=== PATIENT | female | born 2000 | race Caucasian/White ===

== ENCOUNTER 2020-04-20 09:50 | Observation (INO) ==
[2020-04-20 11:32] LABS: Bilirubin,Urine Negative (Negative); Blood,Urine Negative (Negative); Clarity,Urine Clear (Clear); Color,Urine Light-Yellow (Yellow); Glucose,Urine (UA) Normal (Normal); Ketones,Urine Negative (Negative); Leukocyte Esterase,Urine Negative (Negative); Nitrite,Urine Negative (Negative); PH,Urine 7.5 pH Units (5.0-8.0); Protein,Urine Negative (Neg-Trace); Specific Gravity,Urine 1.009 (1.010-1.025); Urobilinogen,Urine Normal (Normal)
== END 2020-04-20 11:50 | disposition home or self-care (01) ==
LOC: 1NENULAB
PROVIDERS: ADMIT Obstetrics & Gynecology; ATTEND Obstetrics & Gynecology

== ENCOUNTER 2020-06-02 04:02 | Inpatient (IN) ==
[2020-06-02] MEDS ORDERED: Lidocaine 1% 20 ML MDV INFILT PRN (04:25)
[2020-06-02] MEDS ORDERED: *HR* FentaNYL (PF) 100 MCG/2 ML VIAL IVP PRN (04:25)
[2020-06-02] MEDS ORDERED: miSOPROStoL 25 MCG TABLET PO PRN (04:25)
[2020-06-02] MEDS ORDERED: Metoclopramide 10 MG/2 ML VIAL IVP PRN ×2 (04:25→15:23)
[2020-06-02] MEDS ORDERED: Azithromycin 500 MG in 0.9 % Sodium Chloride 250 ML IVPB ONE (04:25)
[2020-06-02] MEDS ORDERED: Ondansetron 4 MG/2 ML VIAL IVP PRN ×3 (04:25→15:23)
[2020-06-02] MEDS ORDERED: Famotidine 20 MG/2 ML VIAL IVP PRN (04:25)
[2020-06-02] MEDS ORDERED: Naloxone 0.4 MG/ML INJ IVP PRN (04:25)
[2020-06-02] MEDS ORDERED: Ringers Solution, Lactated 1,000 ML IVC SCH (04:30)
[2020-06-02 04:40] LABS: Basophils % 0.2 %; Eosinophils # 0.1 K/mcL (0.0-0.6); Hematocrit 36.9 % (35.3-44.9); Hemoglobin 12.1 g/dL (11.5-15.4); Immature Granulocytes % 0.3 % (0-4); Lymphocytes # 2.6 K/mcL (0.6-4.6); Lymphocytes % 27.7 %; Mean Corpuscular HGB Conc 32.8 g/dL (31.6-35.5); Mean Corpuscular Hemoglobin 29.7 pg (28.0-33.3); Mean Corpuscular Volume 90.4 fL (83.0-100.0); Mean Platelet Volume 12.5 fL (9.4-12.4); Monocytes # 0.6 K/mcL (0.0-1.3); Monocytes % 6.7 %; Neutrophils # 6.1 K/mcL (1.6-8.9); Platelet Count 168 K/mcL (140-400); Red Blood Count 4.08 M/mcL (3.82-4.97); Red Cell Distribution Width 13.2 % (11.5-14.5); Segmented Neutrophils % 64.1 %; White Blood Count 9.5 K/mcL (4.3-11.1)
[2020-06-02 04:50] LABS: Amphetamine Screen,Urine Negative ng/mL (Cutoff=1000); Barbiturate Screen,Urine Negative ng/mL (Cutoff=200); Benzodiazepines Screen,Urine Negative ng/mL (Cutoff=200); Cannabinoid Screen,Urine Negative ng/mL (Cutoff = 50); Cocaine Screen,Urine Negative ng/mL (Cutoff= 300); Opiate Screen,Urine Negative ng/mL (Cutoff=300); Phencyclidine Screen,Urine Negative ng/mL (Cutoff=25)
[2020-06-02] MEDS ORDERED: Ropivacaine/PF 0.2% 20 ML VIAL EP ONE (08:19)
[2020-06-02] MEDS ORDERED: *HR* FentaNYL (PF) 100 MCG/2 ML VIAL EP ONE (08:19)
[2020-06-02] MEDS ORDERED: EPHEDrine 50 MG/ML VIAL IVP PRN (08:19)
[2020-06-02] MEDS ORDERED: Ropivacaine/PF 0.2% 20 ML VIAL ONE (08:22)
[2020-06-02] MEDS ORDERED: *HR* FentaNYL (PF) 100 MCG/2 ML VIAL ONE ×2 (08:22→11:45)
[2020-06-02] MEDS ORDERED: Oxytocin 20 units/ LR 1000 mL 20 UNIT/1,000 ML BAG IVC SCH (08:30)
[2020-06-02] MEDS ORDERED: Epidural Premix (fent/bupiv) 110 ML EP SCH (08:30)
[2020-06-02] MEDS ORDERED: Chloroprocaine/PF 20 ML VIAL INFILT ONE ×2 (11:30→12:00)
[2020-06-02] MEDS ORDERED: *HR* Oxytocin 10 UNIT/ML VIAL IM ONE ×2 (11:41→12:08)
[2020-06-02] MEDS ORDERED: *HR* Morphine Sulfate/PF 10 MG/10 ML AMPUL ONE (11:45)
[2020-06-02] MEDS ORDERED: *HR* HYDROmorphone PF 0.5 MG/0.5 ML SYRINGE IVP PRN (12:05)
[2020-06-02] MEDS ORDERED: Acetaminophen IV 1,000 MG/100 ML INFUS..BTL IVPB ONE (12:05)
[2020-06-02] MEDS ORDERED: Ringers Solution, Lactated 1,000 ML ONE (12:08)
[2020-06-02] MEDS ORDERED: *HR* Phenylephrine 10 MG/ML VIAL ONE (12:11)
[2020-06-02] MEDS ORDERED: *HR* HYDROMORPHONE 2 MG/ML VIAL ONE (12:40)
[2020-06-02] MEDS ORDERED: Sennosides 8.6 MG TABLET PO PRN (15:23)
[2020-06-02] MEDS ORDERED: Rho Immune Globulin 1,500 UNIT SYRINGE IM ONE (15:23)
[2020-06-02] MEDS: Oxytocin 20 units/ LR 1000 mL 20 UNIT/1,000 ML BAG IVC SCH (17:25)
[2020-06-02] MEDS: cephALEXin 500 MG CAPSULE PO SCH (20:23)
[2020-06-02] MEDS: Ibuprofen 600 MG TABLET PO PRN (20:23)
[2020-06-02] MEDS: metroNIDAZOLE 500 MG TABLET PO SCH (20:23)
[2020-06-03] MEDS: Oxytocin 20 units/ LR 1000 mL 20 UNIT/1,000 ML BAG IVC SCH (01:38)
[2020-06-03] MEDS: Ibuprofen 600 MG TABLET PO PRN ×2 (04:04→20:21)
[2020-06-03 05:21] LABS: Basophils % 0.2 %; Eosinophils # 0.1 K/mcL (0.0-0.6); Eosinophils % 0.5 %; Hematocrit 25.9 % (35.3-44.9); Immature Granulocytes % 0.5 % (0-4); Lymphocytes # 1.2 K/mcL (0.6-4.6); Lymphocytes % 11.2 %; Mean Corpuscular HGB Conc 32.8 g/dL (31.6-35.5); Mean Corpuscular Hemoglobin 29.9 pg (28.0-33.3); Mean Corpuscular Volume 91.2 fL (83.0-100.0); Mean Platelet Volume 12.6 fL (9.4-12.4); Monocytes # 1.1 K/mcL (0.0-1.3); Monocytes % 10.3 %; Neutrophils # 8.6 K/mcL (1.6-8.9); Platelet Count 141 K/mcL (140-400); Red Blood Count 2.84 M/mcL (3.82-4.97); Red Cell Distribution Width 13.4 % (11.5-14.5); Segmented Neutrophils % 77.3 %; White Blood Count 11.1 K/mcL (4.3-11.1)
[2020-06-03 05:33] LABS: Hemoglobin 8.5 g/dL (11.5-15.4)
[2020-06-03] MEDS: metroNIDAZOLE 500 MG TABLET PO SCH ×3 (08:36→20:22)
[2020-06-03] MEDS: Prenatal Vit/FA 1 EACH TABLET PO SCH (08:36)
[2020-06-03] MEDS: cephALEXin 500 MG CAPSULE PO SCH ×3 (08:37→20:21)
[2020-06-03] MEDS: *HR* OxyCODONE/APAP 5/325 TABLET PO PRN (16:20)
[2020-06-03] MEDS: Simethicone 80 MG TAB.CHEW PO PRN (22:12)
[2020-06-04] MEDS: Simethicone 80 MG TAB.CHEW PO PRN (06:45)
[2020-06-04] MEDS: *HR* OxyCODONE/APAP 5/325 TABLET PO PRN (06:48)
[2020-06-04 08:10] VITALS: BP 104/56
[2020-06-04] MEDS: cephALEXin 500 MG CAPSULE PO SCH (08:10)
[2020-06-04] MEDS: Prenatal Vit/FA 1 EACH TABLET PO SCH (08:10)
[2020-06-04] MEDS: metroNIDAZOLE 500 MG TABLET PO SCH (08:10)
== END 2020-06-04 11:45 | disposition home or self-care (01) | DRG 540 ==
LOC: 1NENULAB 04:02 → UNDODISIN 05:05 → 1NENUOBS 15:13
PROVIDERS: ADMIT Student in an Organized Health Care Education/Training Program; ATTEND Student in an Organized Health Care Education/Training Program

== ENCOUNTER → 2021-10-04 16:00 | Observation (INO) ==
[2021-10-04 12:56] LABS: Bilirubin,Urine Negative (Negative); Blood,Urine Negative (Negative); Clarity,Urine Clear (Clear); Color,Urine Yellow (Yellow); Glucose,Urine (UA) Normal (Normal); Ketones,Urine Negative (Negative); Leukocyte Esterase,Urine Negative (Negative); Nitrite,Urine Negative (Negative); PH,Urine 6.5 pH Units (5.0-8.0); Protein,Urine Trace mg/dL (Neg-Trace); Specific Gravity,Urine 1.025 (1.010-1.025); Urobilinogen,Urine Normal (Normal)
[2021-10-04 14:54] LABS: Basophils % 0.1 %; Eosinophils # 0.2 K/mcL (0.0-0.6); Eosinophils % 1.4 %; Hematocrit 33.9 % (35.3-44.9); Hemoglobin 11.7 g/dL (11.5-15.4); Immature Granulocytes % 0.5 % (0-4); Lymphocytes # 2.5 K/mcL (0.6-4.6); Lymphocytes % 23.7 %; Mean Corpuscular HGB Conc 34.5 g/dL (31.6-35.5); Mean Corpuscular Hemoglobin 30.3 pg (28.0-33.3); Mean Corpuscular Volume 87.8 fL (83.0-100.0); Mean Platelet Volume 11.9 fL (9.4-12.4); Monocytes # 0.6 K/mcL (0.0-1.3); Monocytes % 5.3 %; Neutrophils # 7.4 K/mcL (1.6-8.9); Platelet Count 218 K/mcL (140-400); Red Blood Count 3.86 M/mcL (3.82-4.97); Red Cell Distribution Width 12.8 % (11.5-14.5); White Blood Count 10.7 K/mcL (4.3-11.1)
[2021-10-04 15:12] LABS: Alanine Aminotransferase 8 Units/L (7-52); Albumin 3.7 g/dL (3.5-5.7); Albumin/Globulin Ratio 1.2 (1.1-2.2); Alkaline Phosphatase 110 Units/L (34-104); Aspartate Amino Transferase 11 Units/L (13-39); BUN/Creatinine Ratio 23 (6-26); Bilirubin,Total 0.3 mg/dL (0.3-1.0); Blood Urea Nitrogen 11 mg/dL (6-20); Calcium 8.9 mg/dL (8.6-10.3); Carbon Dioxide 22 mEq/L (23-29); Chloride 106 mEq/L (98-107); Globulin 3.1 g/dL (2.4-3.5); Glucose 66 mg/dL (70-105); Osmolality,Calculated 280 (280-300); Potassium 3.8 mEq/L (3.5-5.1); Sodium 136 mEq/L (136-145); Total Protein 6.8 g/dL (6.4-8.9); eGFR For African Americans > 60 (> 60); eGFR For Non-African Americans > 60 (> 60)
[~2021-10-04 16:00] MED LIST: Ringers Solution, Lactated 1,000 ML IVC ONE
== END | disposition home or self-care (01) ==
LOC: 1NENULAB
PROVIDERS: ADMIT Obstetrics & Gynecology; ATTEND Obstetrics & Gynecology

== ENCOUNTER → 2021-11-09 23:30 | Observation (INO) ==
[2021-11-09 21:40] LABS: Bacteria,Urine Few per hpf (None-Few); Bilirubin,Urine Negative (Negative); Blood,Urine Negative (Negative); Clarity,Urine Clear (Clear); Color,Urine Yellow (Yellow); Glucose,Urine (UA) Normal (Normal); Ketones,Urine Negative (Negative); Leukocyte Esterase,Urine Small (Negative); Mucus,Urine Few per lpf (None-Few); Nitrite,Urine Negative (Negative); PH,Urine 6.5 pH Units (5.0-8.0); Protein,Urine 50 mg/dL (Neg-Trace); Specific Gravity,Urine > 1.030 (1.010-1.025); Squamous Epithelial Cell,Urine Moderate per hpf (None-Few)
[~2021-11-09 23:30] MED LIST changes: +Ondansetron 4 MG/2 ML VIAL IVP PRN; -Ringers Solution, Lactated 1,000 ML IVC ONE; +Ringers Solution, Lactated 500 ML IVC ONE
== END | disposition home or self-care (01) ==
LOC: 1NENULAB
PROVIDERS: ADMIT Obstetrics & Gynecology; ATTEND Obstetrics & Gynecology

== ENCOUNTER 2021-11-22 05:26 | Inpatient (IN) ==
[2021-11-22] MEDS ORDERED: Ringers Solution, Lactated 1,000 ML IVC ONE (05:38)
[2021-11-22] MEDS ORDERED: Azithromycin 500 MG in 0.9 % Sodium Chloride 250 ML IVPB PRN (05:38)
[2021-11-22] MEDS ORDERED: Metoclopramide 10 MG/2 ML VIAL IVP PRN ×2 (05:38→12:38)
[2021-11-22] MEDS ORDERED: Naloxone 0.4 MG/ML INJ IVP PRN (05:38)
[2021-11-22] MEDS ORDERED: Famotidine 20 MG/2 ML VIAL IVP PRN (05:38)
[2021-11-22] MEDS ORDERED: Ringers Solution, Lactated 1,000 ML IVC SCH ×2 (05:45→12:38)
[2021-11-22 07:11] LABS: Basophils % 0.3 %; Eosinophils # 0.1 K/mcL (0.0-0.6); Eosinophils % 1.3 %; Hematocrit 35.9 % (35.3-44.9); Hemoglobin 11.9 g/dL (11.5-15.4); Immature Granulocytes % 0.4 % (0-4); Lymphocytes # 2.4 K/mcL (0.6-4.6); Lymphocytes % 24.6 %; Mean Corpuscular HGB Conc 33.1 g/dL (31.6-35.5); Mean Corpuscular Volume 87.6 fL (83.0-100.0); Mean Platelet Volume 12.8 fL (9.4-12.4); Monocytes # 0.6 K/mcL (0.0-1.3); Monocytes % 5.6 %; Neutrophils # 6.7 K/mcL (1.6-8.9); Platelet Count 219 K/mcL (140-400); Red Cell Distribution Width 13.4 % (11.5-14.5); Segmented Neutrophils % 67.8 %; White Blood Count 9.9 K/mcL (4.3-11.1)
[2021-11-22] MEDS ORDERED: Oxytocin 20 units/ LR 1000 mL 20 UNIT/1,000 ML BAG IVC ONE (07:27)
[2021-11-22] MEDS ORDERED: CeFAZolin 2,000 MG/120 ML BAG IVPB ONE (07:27)
[2021-11-22] MEDS ORDERED: Oxytocin 20 units/ LR 1000 mL 20 UNIT/1,000 ML BAG IVC SCH ×2 (07:30→12:38)
[2021-11-22] MEDS ORDERED: Acetaminophen IV 1,000 MG/100 ML BAG IVPB ONE ×2 (08:17→08:45)
[2021-11-22] MEDS ORDERED: *HR* Morphine Sulfate/PF 10 MG/10 ML AMPUL ONE (08:30)
[2021-11-22] MEDS ORDERED: *HR* FentaNYL (PF) 100 MCG/2 ML VIAL ONE (08:31)
[2021-11-22] MEDS ORDERED: Ondansetron 4 MG/2 ML VIAL ONE (08:45)
[2021-11-22 09:41] LABS: Amphetamine Screen,Urine Negative ng/mL (Cutoff=1000); Barbiturate Screen,Urine Negative ng/mL (Cutoff=200); Benzodiazepines Screen,Urine Negative ng/mL (Cutoff=200); Cannabinoid Screen,Urine Negative ng/mL (Cutoff = 50); Cocaine Screen,Urine Negative ng/mL (Cutoff= 300); Opiate Screen,Urine Negative ng/mL (Cutoff=300); Phencyclidine Screen,Urine Negative ng/mL (Cutoff=25)
[2021-11-22] MEDS ORDERED: Ketorolac 30 MG/ML VIAL ONE (09:42)
[2021-11-22] MEDS ORDERED: Lidocaine -MPF 2% 5 ML VIAL ONE ×2 (09:50→10:02)
[2021-11-22] MEDS ORDERED: *HR* OxyCODONE Immed Rel 5 MG TABLET PO PRN ×2 (10:35→12:38)
[2021-11-22] MEDS ORDERED: Rho Immune Globulin 1,500 UNIT SYRINGE IM ONE (12:38)
[2021-11-22] MEDS ORDERED: Ondansetron 4 MG/2 ML VIAL IVP PRN (12:38)
[2021-11-22] MEDS: Simethicone 80 MG TAB.CHEW PO PRN (21:44)
[2021-11-22] MEDS: Ibuprofen 600 MG TABLET PO SCH (21:44)
[2021-11-22] MEDS: Acetaminophen 325 MG TABLET PO SCH (21:44)
[2021-11-23 05:06] LABS: Basophils % 0.2 %; Eosinophils # 0.1 K/mcL (0.0-0.6); Eosinophils % 0.4 %; Hematocrit 28.9 % (35.3-44.9); Immature Granulocytes % 0.4 % (0-4); Lymphocytes # 1.7 K/mcL (0.6-4.6); Lymphocytes % 13.7 %; Mean Corpuscular HGB Conc 32.9 g/dL (31.6-35.5); Mean Corpuscular Hemoglobin 28.8 pg (28.0-33.3); Mean Corpuscular Volume 87.6 fL (83.0-100.0); Mean Platelet Volume 12.8 fL (9.4-12.4); Monocytes # 1.1 K/mcL (0.0-1.3); Monocytes % 9.3 %; Neutrophils # 9.4 K/mcL (1.6-8.9); Platelet Count 177 K/mcL (140-400); Red Cell Distribution Width 13.3 % (11.5-14.5); White Blood Count 12.3 K/mcL (4.3-11.1)
[2021-11-23 05:10] LABS: Hemoglobin 9.5 g/dL (11.5-15.4)
[2021-11-23] MEDS: Acetaminophen 325 MG TABLET PO SCH ×2 (06:39→17:23)
[2021-11-23] MEDS: Ibuprofen 600 MG TABLET PO SCH ×2 (06:39→17:23)
[2021-11-23] MEDS: Prenatal Vit/FA 1 EACH TABLET PO SCH (08:39)
[2021-11-23] MEDS: Simethicone 80 MG TAB.CHEW PO PRN ×2 (10:52→17:22)
[2021-11-24] MEDS: Acetaminophen 325 MG TABLET PO SCH ×2 (02:30→09:38)
[2021-11-24] MEDS: Ibuprofen 600 MG TABLET PO SCH ×2 (02:30→09:37)
[2021-11-24 09:16] VITALS: BP 98/54; PULSE 90; TEMP 98.1; O2SAT 98
[2021-11-24] MEDS: Prenatal Vit/FA 1 EACH TABLET PO SCH (09:38)
== END 2021-11-24 10:30 | disposition home or self-care (01) | DRG 539 ==
LOC: 1NENULAB 05:26 → 1NENUOBS 12:21
PROVIDERS: ADMIT Student in an Organized Health Care Education/Training Program; ATTEND Student in an Organized Health Care Education/Training Program

== ENCOUNTER 2022-04-09 17:46 | Inpatient (IN) ==
[2022-04-09 19:00] LABS: Basophils % 0.4 %; Eosinophils # 0.1 K/mcL (0.0-0.6); Eosinophils % 0.6 %; Hematocrit 39.4 % (35.3-44.9); Hemoglobin 12.5 g/dL (11.5-15.4); Immature Granulocytes % 0.4 % (0-4); Lymphocytes # 2.8 K/mcL (0.6-4.6); Mean Corpuscular HGB Conc 31.7 g/dL (31.6-35.5); Mean Corpuscular Hemoglobin 26.3 pg (28.0-33.3); Mean Corpuscular Volume 82.9 fL (83.0-100.0); Mean Platelet Volume 12.9 fL (9.4-12.4); Monocytes # 0.6 K/mcL (0.0-1.3); Monocytes % 5.5 %; Neutrophils # 6.9 K/mcL (1.6-8.9); Platelet Count 353 K/mcL (140-400); Red Blood Count 4.75 M/mcL (3.82-4.97); Red Cell Distribution Width 14.6 % (11.5-14.5); Segmented Neutrophils % 66.1 %; White Blood Count 10.4 K/mcL (4.3-11.1)
[2022-04-09 19:05] LABS: Amphetamine Screen,Urine Negative ng/mL (Cutoff=1000); Barbiturate Screen,Urine Negative ng/mL (Cutoff=200); Benzodiazepines Screen,Urine Negative ng/mL (Cutoff=200); Cannabinoid Screen,Urine Positive ng/mL (Cutoff = 50); Cocaine Screen,Urine Negative ng/mL (Cutoff= 300); Opiate Screen,Urine Negative ng/mL (Cutoff=300); Phencyclidine Screen,Urine Negative ng/mL (Cutoff=25)
[2022-04-09 19:08] LABS: Bilirubin,Urine Negative (Negative); Blood,Urine Negative (Negative); Clarity,Urine Clear (Clear); Color,Urine Yellow (Yellow); Glucose,Urine (UA) Normal (Normal); Ketones,Urine 10 mg/dL (Negative); Leukocyte Esterase,Urine Negative (Negative); Mucus,Urine Many per lpf (None-Few); Nitrite,Urine Negative (Negative); Protein,Urine 50 mg/dL (Neg-Trace); Specific Gravity,Urine > 1.030 (1.010-1.025); Squamous Epithelial Cell,Urine Few per hpf (None-Few); WBC,Urine 0-3 per hpf (0-3)
[2022-04-09 19:22] LABS: Acetaminophen < 10 mcg/mL (10-20); BUN/Creatinine Ratio 22 (6-26); Blood Urea Nitrogen 18 mg/dL (6-20); Calcium 9.7 mg/dL (8.6-10.3); Carbon Dioxide 25 mEq/L (23-29); Chloride 105 mEq/L (98-107); Ethanol < 10 mg/dL (Less than 10); Glucose 77 mg/dL (70-105); Osmolality,Calculated 289 (280-300); Potassium 3.2 mEq/L (3.5-5.1); Salicylate < 2.5 mg/dL (15.0-30.0); Sodium 139 mEq/L (136-145); eGFR For African Americans > 60 (> 60); eGFR For Non-African Americans > 60 (> 60)
[2022-04-09 22:49] LABS: Influenza A PCR Negative (Negative); Influenza B PCR Negative (Negative); Resp. Syncytial Virus PCR Negative (Negative)
[2022-04-09 22:50] LABS: SARS-CoV-2 by PCR (In House) Negative (Negative)
[2022-04-09] MEDS ORDERED: Haloperidol Lactate 5 MG/ML VIAL IM PRN (23:31)
[2022-04-09] MEDS ORDERED: traZODone 50 MG TABLET PO PRN (23:31)
[2022-04-09] MEDS ORDERED: *HR* LORazepam 2 MG/ML VIAL IM PRN (23:31)
[2022-04-09] MEDS ORDERED: haloperidoL 5 MG TABLET PO PRN (23:31)
[2022-04-09] MEDS ORDERED: *HR* LORazepam 1 MG TABLET PO PRN (23:31)
[2022-04-09] MEDS ORDERED: hydrOXYzine pamoate 25 MG CAPSULE PO PRN (23:31)
[2022-04-09] MEDS ORDERED: Acetaminophen 325 MG TABLET PO PRN (23:31)
[2022-04-11 08:27] VITALS: BP 99/63; PULSE 86; TEMP 97.2; O2SAT 98
== END 2022-04-11 13:05 | disposition home or self-care (01) | DRG 754 ==
LOC: EMEROOARM 17:46 → INTOOBSV 23:24 → 1ANU 23:24
PROVIDERS: ADMIT Psychiatry & Neurology Forensic Psychiatry; ATTEND Psychiatry & Neurology Forensic Psychiatry